=== PATIENT | female | born 1995 | race Two or more races ===

== ENCOUNTER 2023-03-04 09:30 | Day surgery (SDC) | payer OTHER | END 2023-03-04 14:40 | disposition home or self-care (01) | LOC: CIR.AMB 09:30 | PROVIDERS: ATTEND Orthopaedic Surgery | DX: G56.22 Lesion of ulnar nerve, left upper limb (principal); S66.222A Laceration of extensor muscle, fascia and tendon of left thumb at wrist and hand level, initial encounter; Z20.822 Contact with and (suspected) exposure to COVID-19 ==